=== PATIENT | female | born 1960 | race Caucasian/White ===

== ENCOUNTER → 2017-01-17 | Outpatient (CLI) | payer OTHER ==
[~2017-01-17] MED LIST: CALC1TAB12 PO; MOTR200T PO; MULT-65 PO; MULTTAB67 PO
[2017-01-17 14:02] LABS: AUTOMATED NEUTROPHIL # 6.3 TH/MM3 (1.8-7.7); BASOPHIL % 0.4 % (0.0-2.0); EOSINOPHIL # 0.1 TH/MM3 (0-0.4); EOSINOPHIL % 0.9 % (0.0-4.0); HEMATOCRIT 36.7 % (35.0-46.0); HEMO FLAGS DIFF FINAL; LYMPH % 11.3 % (9.0-44.0); LYMPHOCYTE # 0.9 TH/MM3 (1.0-4.8); MEAN CELL VOLUME 89.9 FL (80.0-100.0); MEAN CORPUSCULAR HEMOGLOBIN 31.2 PG (27.0-34.0); MEAN CORPUSCULAR HGB CONC 34.7 % (32.0-36.0); MONO % 4.2 % (0.0-8.0); NEUT % 83.2 % (16.0-70.0); PLATELET COUNT 175 TH/MM3 (150-450); RED BLOOD COUNT 4.08 MIL/MM3 (4.00-5.30); RED CELL DISTRIBUTION WIDTH 12.5 % (11.6-17.2); WHITE BLOOD COUNT 7.6 TH/MM3 (4.0-11.0)
[2017-01-17 14:20] LABS: BACTERIA, URINE OCC /hpf; BLOOD, URINE NEG (NEG); COMMENT (UR) CULTURE INDICATED; CULTURE IF INDICATED CULTURE INDICATED; GLUCOSE,URINE NEG (NEG); KETONE, URINE NEG (NEG); MUCUS URINE FEW /lpf (OCC); NITRITE,URINE NEG (NEG); URINE COLOR LIGHT-YELLOW (YELLW/STRAW)
--- NOTE | 2017-01-18 23:36 | EKG ---
Date Performed: 01/17/2017 Time Performed: 13:17:52 PTAGE: 56 years EKG: Sinus rhythm NORMAL ECG NO PREVIOUS TRACING DOCTOR: Sharon Garvin Interpretating Date/Time 01/18/2017 23:33:06
== END ==
LOC: CPRE 12:59
PROVIDERS: ATTEND Obstetrics & Gynecology
DX: Z01.812 Encounter for preprocedural laboratory examination (principal); N72 Inflammatory disease of cervix uteri
CPT/HCPCS: 36415; 81001; 85025; 87086; 93005

== ENCOUNTER → 2017-01-22 | Day surgery (SDC) | payer OTHER ==
[~2017-01-22] VITALS: Ht 167.6 cm; Wt 63.1 kg
[~2017-01-22] MED LIST changes: +ACETAMINOPHEN 1000 MG/100 ML VIAL IV PRN; +DEXAMETHASONE SOD PHOS 4 MG/ML VIAL ONE; +DO NOT ADM ANY ANTICOAGULANT DRUGS XX PRN; +FAMOTIDINE 20 MG/2 ML VIAL ONE; +INSULIN HUMAN REGULAR 1,000 UNITS/10 ML VIAL SQ PRN; +KETOROLAC TROMETHAMINE 60 MG/2 ML (IM) VIAL IM ONE; +LACTATED RINGER'S 1000 ML IV SCH; +LIDOCAINE 1%/EPINEPHrine 1:100,000 SOLN 30 ML VIAL ONE; +METOCLOPRAMIDE HCL 10 MG/2 ML VIAL IV PRN; +METOPROLOL TARTRATE 25 MG TAB PO PRN; +MIDAZOLAM HCL 2 MG/2 ML VIAL ONE; -MOTR200T PO; -MULT-65 PO; +ONDANSETRON HCL 4 MG/2 ML VIAL IV PUSH ONE; +PHENYLEPH/NS 1000 MCG/10 ML SYR IV ONE; +PROPOFOL 200 MG/20 ML AMP IV ONE; +SODIUM CHLORID 0.9% 500 ML IV SCH; +ceFAZolin 1,000 MG/NS 100 ML IV SCH; +oxyCODONE/ACETAMINOPHEN 5 MG/325 MG TAB PO PRN
[2017-01-22 06:28] VITALS: BP 133/84; PULSE 81; RESP 20; TEMP 97.6; O2SAT 100
--- NOTE | 2017-01-22 06:59 | MH ---
cc: GADIEL MCMULLEN DATE OF ADMISSION: 01/22/2017 DATE OF 1960 ADMISSION DIAGNOSIS Chronic symptomatic cervicitis. HISTORY OF PRESENT ILLNESS A 56-year-old white female para 4-0-0-4, with a one-year history of symptomatic cervicitis with discharge and discomfort refractory to medical therapy. She is now admitted for a LEEP cone biopsy for possible occult neoplasia. She has been symptomatic over one year, has tried multiple courses of antibiotics, has biopsy-proven diagnosis and failed to improve with cryosurgery in 2016. She is now admitted for LEEP procedure. PAST SURGICAL HISTORY 1. T&A at age 8. 2. She had laparoscopic tubal in 2005. 3. Appendectomy in 1997. 4. Cone biopsy in 1985. 5. She had a LASH procedure with a partial left oophorectomy in 2011. ALLERGIES VANCOMYCIN. TRANSFUSIONS None. 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 SOCIAL HISTORY . Homemaker. Alcohol, tobacco and drugs: None. PHYSICAL EXAMINATION GENERAL: A well-nourished, well-developed white female. VITAL SIGNS: Stable. HEENT EXAM: Normal. CHEST: Clear. HEART: Regular rate. BREASTS: Symmetrical. ABDOMEN: Benign. PELVIC EXAM: Vagina is normal. Cervix small, yellow discharge, mildly tender. Uterus absent. Adnexa are not palpable. ASSESSMENT As above. PLAN She is now admitted for a cone biopsy and LEEP procedure. While in the office I have explained the procedures, the risks, benefits and complications and the possible need for eventual trachelectomy. The patient would like to proceed. MD MARIAH Lilly/LUCAS /6:10 AM /6:51 AM
[2017-01-22 09:18] VITALS: BP 118/76; PULSE 80; RESP 20; TEMP 97.5; O2SAT 100
--- NOTE | 2017-01-23 07:21 | MP ---
cc: GADIEL MCMULLEN DATE OF SURGERY 01/22/2017 PREOPERATIVE DIAGNOSIS Chronic cervicitis refractory to conservative therapies. POSTOPERATIVE DIAGNOSIS Chronic cervicitis refractory to conservative therapies. PROCEDURE LEEP cone biopsy. ANESTHESIA General LMA plus 15 cc of 1% lidocaine plus epinephrine. ESTIMATED BLOOD LOSS Less than 10 cc. FLUIDS Half liter of crystalloid. OBJECTIVE FINDINGS Following the induction of adequate general endotracheal anesthesia the patient was prepped and draped supine on the operating table in dorsal lithotomy position in the usual sterile fashion with the bladder being drained via in and out catheterization. A heavy weighted speculum was placed in the posterior fornix of the vagina, the anterior lip of the cervix grasped with single-tooth tenaculum, the cervix injected with 15 cc of lidocaine plus epinephrine. A medium LEEP loop was used to excise the specimen in two portions for permanent study to a depth of 8 mm. The cone bed was then cauterized with the Bovie. The anterior posterior lips were run with a running locking stitch of 0 Vicryl and good hemostasis. At the completion of the procedure, all counts were correct. The patient's legs were taken down from the stirrups. She was awakened and taken to the recovery room in good condition. MD MARIAH Lilly/LUCAS /8:01 AM /6:58 AM
== END | disposition home or self-care (01) ==
LOC: HSDC 05:41
PROVIDERS: ATTEND Obstetrics & Gynecology
DX: N72 Inflammatory disease of cervix uteri (principal)
CPT/HCPCS: 00940; 57522; 88307; J0131; J0690; J1100; J1885; J2250; J2370; J2405; J3010; J7120